=== PATIENT | male | born 1985 | race Caucasian/White ===

== ENCOUNTER → 2017-06-18 | Outpatient (CLI) | payer OTHER | END | disposition home or self-care (01) | LOC: CARD 14:38 | DX: R07.9 Chest pain, unspecified (principal) ==

== ENCOUNTER 2018-09-22 01:54 | Emergency (ER) | payer SELFPAY ==
[~2018-09-22] VITALS: Ht 182.8 cm; Wt 108.9 kg
[2018-09-22] MEDS ORDERED: MOBIC7.5 MG PO (03:20)
[2018-09-22] MEDS ORDERED: CYCLOBENZAPRINE10 MG PO (03:20)
== END 2018-09-22 03:33 | disposition home or self-care (01) ==
LOC: ED 01:54
DX: S29.012A Strain of muscle and tendon of back wall of thorax, initial encounter (principal); X50.0XXA Overexertion from strenuous movement or load, initial encounter; Y93.89 Activity, other specified; Y92.69 Other specified industrial and construction area as the place of occurrence of the external cause; Y99.0 Civilian activity done for income or pay